=== PATIENT | female | born 1960 | race Two or more races ===

== ENCOUNTER → 2020-02-16 | Outpatient (CLI) | payer OTHER | END | disposition home or self-care (01) | LOC: NUCLEAR 02-09 07:00 | PROVIDERS: ATTEND Internal Medicine Cardiovascular Disease | DX: I20.8 Other forms of angina pectoris (principal) | CPT/HCPCS: 78452; 93017; A9500 ==

== ENCOUNTER → 2022-07-03 | Outpatient (CLI) | payer OTHER | END | disposition home or self-care (01) | LOC: RAD 11:56 | PROVIDERS: ATTEND Internal Medicine | DX: M54.31 Sciatica, right side (principal); M25.551 Pain in right hip ==

== ENCOUNTER 2022-07-17 10:39 | Outpatient (CLI) | payer OTHER | END 2022-07-17 10:40 | disposition home or self-care (01) | LOC: RAD 10:39 | PROVIDERS: ATTEND Internal Medicine | DX: M54.59 Other low back pain (principal) ==

== ENCOUNTER 2022-07-22 07:26 | Outpatient (CLI) | payer OTHER | END 2022-07-22 07:45 | disposition home or self-care (01) | LOC: TOM 07:26 | PROVIDERS: ATTEND Internal Medicine | DX: M54.59 Other low back pain (principal) ==

== ENCOUNTER 2023-05-26 07:34 | Outpatient (CLI) | payer OTHER | END 2023-05-26 07:43 | disposition home or self-care (01) | LOC: RAD 07:34 | PROVIDERS: ATTEND Internal Medicine Cardiovascular Disease | DX: M75.51 Bursitis of right shoulder (principal) ==

== ENCOUNTER 2023-06-21 07:10 | Outpatient (CLI) | payer OTHER | END 2023-06-21 10:48 | disposition home or self-care (01) | LOC: MRI 07:10 | PROVIDERS: ATTEND Internal Medicine | DX: M25.511 Pain in right shoulder (principal) | CPT/HCPCS: 73218 ==

== ENCOUNTER 2023-07-22 11:28 | Emergency (ER) | payer OTHER ==
[~2023-07-22] VITALS: Ht 165.1 cm; Wt 63.5 kg
[2023-07-22] MEDS ORDERED: ATORVASTATIN CA20 MG PO (12:13)
[2023-07-22] MEDS ORDERED: GUAIFENESIN 200 MG/10 ML BLIST.PACK PO STA (12:51)
[2023-07-22 13:33] LABS: HEMATOCRIT 41.2 % (36.0-45.00); HEMOGLOBIN 14.2 g/dL (12.0-15.00); MEAN CELL VOLUME 89.6 fL (80.00-100.00); MEAN CORPUSCULAR HEMOGLOBIN 30.8 pg (27.00-32.0); MEAN CORPUSCULAR HGB CONC 34.4 g/dl (32.0-36.0); PLATELET COUNT 281 K/uL (150-450); RED CELL DISTRIBUTION WIDTH 14.3 % (11.5-14.5)
[2023-07-22 14:31] LABS: ABG PH 7.498 (7.35-7.45); ABG PO2 122.3 mmHg (80-100); ABG pCO2 31.2 mmHg (35-45); BASE EXCESS 1.3 mmol/l; BICARBONATE 23.6 mmol/l (23-25); SaO2 99.1 %; Tco2 24.6 mmol/l; allen test SATISFACTORY; o2 21 %; puncture site RADIAL LEFT
[2023-07-22] MEDS ORDERED: ZITHROMAX500 MG PO (15:45)
[2023-07-22] MEDS ORDERED: AZITHROMYCIN 500 MG TABLET PO ONE (16:00)
== END 2023-07-22 16:25 | disposition home or self-care (01) ==
LOC: ER 11:29
PROVIDERS: General Practice
DX: J40 Bronchitis, not specified as acute or chronic (principal); R05.9 Cough, unspecified; I10 Essential (primary) hypertension; Z20.822 Contact with and (suspected) exposure to COVID-19; Z88.2 Allergy status to sulfonamides